=== PATIENT | male | born 2000 | race African-American/Black ===

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

== ENCOUNTER 2023-12-08 08:04 | Emergency (ER) | payer OTHER ==
[2023-12-08] MEDS ORDERED: SODIUM CHLORIDE 0.9% 1,000 ML BAG ONE (09:20)
--- NOTE | 2023-12-31 14:22 | CT ---
Patient Kulwinder Merrill ID [birth year] Order # EXAMINATION TYPE: CT brain wo con DATE OF EXAM: 12/08/2023 COMPARISON: No comparison on downtime PACS INDICATION: Syncope, history of seizure DLP: 1164.8 mGycm, Automated exposure control for dose reduction was used. CONTRAST: None CT of the brain is performed utilizing 3 mm thick sections through the posterior fossa and 3 mm thick sections through the remaining calvarium. Study is performed within 24 hours of arrival to the hosp [facility]. No abnormal hyperdensity is present to suggest an acute intracranial hemorrhage. No mass lesion is evident. No acute infarcts are evident. Ventricles and sulci are appropriate for the patient age. Paranasal sinuses and mastoid air cells within the [id number] are clear. Note is made of right sep ac deviation. IMPRESSION: 1. No acute intracranial process. Follow-up MRI can be performed as clinically indicated.
== END 2023-12-08 12:45 | disposition home or self-care (01) ==
LOC: EC 08:04
DX: R56.9 Unspecified convulsions (principal)
CPT/HCPCS: 70450; 93005; 96360; 99284